=== PATIENT | male | born 1990 | race Two or more races ===

== ENCOUNTER 2016-10-02 11:21 | Emergency (ER) | payer OTHER ==
[2016-10-02 11:28] VITALS: BP 119/72; PULSE 90; TEMP 99.2; BMI 23.0
--- NOTE | 2016-10-02 11:53 | PDOC ---
History of Present Illness - General Chief Complaint: Sore Throat Stated Complaint: SORE THROAT/ FEVER Time Seen by Provider: 10/02/16 11:35 History Source: Patient Exam Limitations: No Limitations - History of Present Illness Initial Comments: 10/02/16 11:51 The patient is a 25-year-old male, immunocompetent, who presents to the emergency department complaining of several days of sore throat, subjective fever and body ache. He denies cough. No sick contacts. He has been able to eat and drink. He denies nausea, vomiting. He is able to fully open his mouth. He denies change in his voice. He denies rash. Past History - Past Medical History Allergies/Adverse Reactions: Allergies Allergy/AdvReac Type Severity Reaction Status Date / Time No Known Allergies Allergy Verified 10/02/16 11:24 Home Medications: Ambulatory Orders NK [No Known Home Medication] 10/02/16 Other medical history: DENIES - Psycho/Social/Smoking Cessation Hx Anxiety: No Suicidal Ideation: No Smoking History: Never smoked Hx Alcohol Use: Yes Drug/Substance Use Hx: No Substance Use Type: Alcohol Review of Systems - Review of Systems Comments:: 10/02/16 11:51 CONSTITUTIONAL: Present: See HPI Absent: fatigue EYES: Absent: visual changes ENT: Present: Sore throat Absent: ear pain CARDIOVASCULAR: Absent: chest pain, palpitations, loss of consciousness RESPIRATORY: Absent: cough, SOB GI: Absent: abdominal pain, nausea, vomiting, constipation, diarrhea GENITOURINARY: Absent: dysuria, frequency, hematuria MUSKULOSKELETAL: Present: myalgia Absent: back pain, arthralgia SKIN: Absent: rash NEURO: Absent: headache, dizziness 10/02/16 11:55 *Physical Exam - Vital Signs Last Vital Signs Temp Pulse Resp BP Pulse Ox 99.2 F 90 16 119/72 100 10/02/16 11:21 10/02/16 11:21 10/02/16 11:21 10/02/16 11:21 10/02/16 11:21 - Physical Exam Comments: 10/02/16 11:52 GENERAL: Well-appearing, well-nourished. No apparent distress. HEENT: Mild posterior pharyngeal erythema with mild tonsillar edema No exudates Uvula midline No trismus Normocephalic, atraumatic. PERRL, EOM intact NECK: No lymphadenopathy CARDIOVASCULAR: Normal S1, S2. Regular rate and rhythm. PULMONARY: Clear to auscultation bilaterally. ABDOMEN: Soft, non-distended, non-tender. EXTREMITIES: Normal ROM in all four extremities. No gross deformities. SKIN: Warm, dry. No rash NEUROLOGICAL: No focal neurological deficits. 10/02/16 12:04 Medical Decision Making - Medical Decision Making 10/02/16 12:04 The patient is well-appearing and in no acute distress He has 1 out of 4 Centor criteria His clinical presentation is quite consistent with viral pharyngitis Will administer a single dose of Decadron here, for symptomatic relief Will advise outpatient NSAID therapy as well as vigorous fluid ingestion He understands the importance of returning if he develops new symptoms or worsening symptoms Clinical impression: Viral pharyngitis I discussed the physical exam findings, ancillary test results and final diagnoses with the patient. I answered all of the patient's questions. The patient was satisfied with the care received and felt comfortable with the discharge plan and treatment plan. The patient will call their primary care physician within 24 hours to arrange follow-up and will return to the Emergency Department with any new, persistent or worsening symptoms. 10/02/16 12:11 The mother states that he has had intermittent back pain for the past several years She has been told that it was musculoskeletal back pain, related to overexertion She is requesting a urinalysis to "check his kidneys" Will obtain urinalysis *DC/Admit/Observation/Transfer Diagnosis at time of Disposition: Viral pharyngitis - Discharge Dispostion Disposition: HOME Condition at time of disposition: Improved - Patient Instructions Printed Discharge Instructions: DI for Viral Pharyngitis Additional Instructions: You do not have evidence of a bacterial sore throat. Therefore, antibiotics will not help. We gave to a medicine called Decadron, which should help improve your symptoms. Return to the emergency department immediately with ANY new, persistent or worsening symptoms. You MUST call and follow up with your doctor tomorrow. Please make sure your doctor reviews the results of your emergency department evaluation. - Post Discharge Activity Work/School Note: Back to Work
[2016-10-02] MEDS ORDERED: DEXAMETHASONE 4 MG TABLET (FP) PO ONE (12:06)
[2016-10-02] MEDS ORDERED: DEXAMETHASONE 4 MG TABLET (FP) ONE (12:07)
[2016-10-02 12:23] LABS: URINE APPEARANCE CLEAR; URINE COLOR AMBER; URINE GLUCOSE (UA) NEGATIVE (NEGATIVE)
[2016-10-02 12:24] LABS: URINE BILIRUBIN 1+ (NEGATIVE); URINE BLOOD NEGATIVE (NEGATIVE); URINE KETONE NEGATIVE (NEGATIVE); URINE LEUK ESTERASE NEGATIVE (NEGATIVE); URINE NITRITE NEGATIVE (NEGATIVE); URINE PROTEIN TRACE (NEGATIVE); URINE UROBILINOGEN 0.2 E.U/dl (0.2-1.0)
== END 2016-10-02 12:56 | disposition home or self-care (01) ==
LOC: FER 11:21
DX: J02.9 Acute pharyngitis, unspecified (principal); B97.89 Other viral agents as the cause of diseases classified elsewhere
CPT/HCPCS: 81003; 99281-25